=== PATIENT | female | born 1940 | race Caucasian/White ===

== ENCOUNTER 2018-10-09 16:49 | Inpatient (IN) | payer MEDICARE ==
[2018-10-09] MEDS ORDERED: LEVALBUTEROL 1.25 MG/3 ML NEB ONE (18:41)
[2018-10-09] MEDS ORDERED: IPRATROPIUM BROM 0.5MG/2.5ML ONE (18:41)
[2018-10-09 18:48] LABS: Potassium 3.9 mmol/L (3.5-5.1)
[2018-10-09 19:02] LABS: Absolute Lymphocytes (CBC) 0.7 K/uL (0.7-4.9); Absolute Monocytes 1.6 K/uL (0.1-1.3); Absolute Neutrophil 14.9 K/uL (1.8-8.0); Basophils % 0.1 % (0-1.3); Eosinophils % 0.1 % (0-4.4); Hematocrit 40.4 % (36.0-45.0); MPV 10.1 fL (7.6-11.3); Monocytes % 9.2 % (3.3-12.3); RBC Red Blood Cell Count 4.03 M/uL (3.86-4.86)
--- NOTE | 2018-10-09 19:14 | RAD REPORT ---
EXAM DESCRIPTION: Tirso Single View10/09/2018 5:56 pm CLINICAL HISTORY: Cough COMPARISON: none FINDINGS: Extensive bilateral reticulonodular opacities are present. Prominent right apical soft tissue is seen. Right lateral base is hazy. The heart is normal size IMPRESSION: Extensive bilateral reticulonodular opacities. This all may represent pulmonary fibrosis . However, an acute superimposed process such as infection can also have this appearance Prominent right apical soft tissue may represent pleural thickening. As a mass can also have this samantha earance it is recommended that the patient have a followup PA and lateral chest series in 1 month for re-evaluation Right lateral base is hazy which may indicate pneumonia or pleural thickening
[2018-10-09] MEDS ORDERED: CEFTRIAXONE/SWI 1gm 1 GM/10 ML SYR ONE (19:55)
[2018-10-09] MEDS ORDERED: AZITHROMYCIN 500 MG/250 ML BAG ONE (19:56)
--- NOTE | 2018-10-09 20:15 | EDPHYS ---
Physician Documentation [facility] Name: Selam Soto Age: 78 yrs Sex: Female : 1940 Arrival Date: 10/09/2018 Time: 16:56 Bed 23 Private MD: ED Physician Srikanth Bonds HPI: 10/09 21:54 This 78 yrs old Female presents to ER via Ambulatory with complaints of kb Breathing Difficulty, Congestion. 21:54 The patient has shortness of breath at rest, and the patient has a history of COPD. kb Onset: The symptoms/episode began/occurred 5 day(s) ago. Duration: The symptoms are continuous. The patient's shortness of breath is aggravated by exertion, is alleviated by nothing. Associated signs and symptoms: Pertinent positives: productive cough. Severity of symptoms: At their worst the symptoms were moderate in the emergency department the symptoms are unchanged. The patient has not experienced similar symptoms in the past. The patient has not recently seen a physician. Historical: - Allergies: 17:19 No Known Allergies; sg - Immunization history:: Adult Immunizations. - Social history:: Smoking status: Patient uses tobacco products, smokes one pack cigarettes per day. - Ebola Screening: : No symptoms or risks identified at this time. ROS: 21:30 Constitutional: Negative for fever, chills, and weight loss, ENT: Negative for injury, kb pain, and discharge, Neck: Negative for injury, pain, and swelling, Cardiovascular: Negative for chest pain, palpitations, and edema, Abdomen/GI: Negative for abdominal pain, nausea, vomiting, diarrhea, and constipation, Back: Negative for injury and pain, MS/Extremity: Negative for injury and deformity, Skin: Negative for injury, rash, and discoloration, Neuro: Negative for headache, weakness, numbness, tingling, and seizure. 21:30 Respiratory: Positive for cough, dyspnea on exertion, shortness of breath, wheezing, Negative for hemoptysis, orthopnea, pleurisy. Exam: 21:30 Constitutional: This is a well developed, well nourished patient who is awake, alert, kb and in no acute distress. Head/Face: Normocephalic, atraumatic. ENT: Nares patent. No nasal discharge, no septal abnormalities noted. Tympanic membranes are normal and external auditory canals are clear. Oropharynx with no redness, swelling, or masses, exudates, or evidence of obstruction, uvula midline. Mucous membranes moist. Neck: Trachea midline, no thyromegaly or masses palpated, and no cervical lymphadenopathy. Supple, full range of motion without nuchal rigidity, or vertebral point tenderness. No Meningismus. Chest/axilla: Normal chest wall appearance and motion. Nontender with no deformity. No lesions are appreciated. Cardiovascular: Regular rate and rhythm with a normal S1 and S2. No gallops, murmurs, or rubs. Normal PMI, no JVD. No pulse deficits. Abdomen/GI: Soft, non-tender, with normal bowel sounds. No distension or tympany. No guarding or rebound. No evidence of tenderness throughout. Back: No spinal tenderness. No costovertebral tenderness. Full range of motion. Skin: Warm, dry with normal turgor. Normal color with no rashes, no lesions, and no evidence of cellulitis. MS/ Extremity: Pulses equal, no cyanosis. Neurovascular intact. Full, normal range of motion. Neuro: Awake and alert, GCS 15, oriented to person, place, time, and situation. Cranial nerves II-XII grossly intact. Motor strength 5/5 in all extremities. Sensory grossly intact. Cerebellar exam normal. Normal gait. 21:30 Respiratory: moderate respiratory distress is noted, Respirations: labored breathing, that is moderate, Breath sounds: wheezing: that is moderate, is heard in the left lower lobe and left posterior lower lobe. Vital Signs: 17:18 BP 120 / 75; Pulse 108; Resp 32; Temp 98.2; Pulse Ox 92% on R/A; Weight 52.16 kg; sg 18:08 BP 130 / 72; Pulse 96; Resp 32; Pulse Ox 89% on R/A; tl3 18:09 BP 172 / 0; Pulse Ox 94% on 2 lpm NC; tl3 20:13 BP 132 / 77; Pulse 89; Resp 32; Pulse Ox 94% ; tl3 21:53 BP 111 / 67; Pulse 102; Resp 28; Pulse Ox 94% on R/A; tl3 MDM: 17:21 Patient medically screened. kb 20:15 Data reviewed: vital signs, nurses notes. Data interpreted: Pulse oximetry: on room air kb is 94 %. Interpretation: acceptable. Counseling: I had a detailed discussion with the patient and/or guardian regarding: the historical points, exam findings, and any diagnostic results supporting the discharge/admit diagnosis, lab results, radiology results, the need for further work-up and treatment in the hospital. Physician consultation: Jesus Manuel Cueto MD was contacted at 20:15, regarding admission, to the telemetry unit. patient's condition, and will see patient in ED, shortly. 10/09 17:37 Order name: CBC with Diff; Complete Time: 19:10 kb 10/09 17:37 Order name: Basic Metabolic Panel; Complete Time: 18:50 kb 10/09 17:37 Order name: Blood Culture Adult (2) kb 10/09 17:37 Order name: Lactate; Complete Time: 18:55 kb 10/09 17:37 Order name: Procalcitonin; Complete Time: 19:24 kb 10/09 17:37 Order name: Flu; Complete Time: 18:55 kb 10/09 17:37 Order name: Chest Single View XRAY; Complete Time: 19:19 kb 10/09 17:37 Order name: IV Start; Complete Time: 18:58 kb Administered Medications: 18:58 Drug: Xopenex (3) 1.25 mg Route: Inhalation; tl3 19:59 Follow up: Response: No adverse reaction tl3 18:58 Drug: AtroVENT Aerosol 0.5 mg Route: Inhalation; tl3 19:59 Follow up: Response: No adverse reaction tl3 19:58 Drug: Rocephin 1 grams Route: IV; Rate: calculated rate; Site: right forearm; Delivery: tl3 Primary tubing; 19:58 Follow up: IV Status: Completed infusion; IV Intake: 20ml tl3 19:58 Drug: Zithromax 500 mg Route: IVPB; Infused Over: 1 hrs; Site: right forearm; Delivery: tl3 Primary tubing; 21:58 Follow up: IV Status: Completed infusion; IV Intake: 250ml tl3 20:22 Drug: NS 0.9% 500 ml Route: IV; Rate: bolus; Site: right forearm; Delivery: Primary tl3 tubing; 22:07 Follow up: IV Status: Completed infusion; IV Intake: 500ml tl3 20:23 Drug: SOLU-Medrol 125 mg Route: IVP; Infused Over: 3 mins; Site: right forearm; tl3 22:00 Follow up: Response: No adverse reaction tl3 Disposition: 02/05 12:43 Co-signature as Attending Physician, Srikanth Bonds MD. rn Disposition: 10/09/18 20:15 Hospitalization ordered by Jesus Manuel Cueto for Observation. Preliminary diagnosis are Pneumonia, unspecified organism, Chronic obstructive pulmonary disease with (acute) exacerbation. - Bed requested for Telemetry/MedSurg (observation). - Status is Observation. tl3 - Condition is Stable. - Problem is new. - Symptoms are unchanged. UTI on Admission? No Signatures: Dispatcher [employer] EDMS Sara Salvador, VP PURCHASING-C VP PURCHASING-Ckb Marily Barrientos RN RN Arnol Sierra RN RN Srikanth Bonds MD MD rn Lowrey, Tammy, RN RN tl3 Corrections: (The following items were deleted from the chart) 10/09 21:14 20:15 Hospitalization Ordered by Jesus Manuel Cueto MD for Observation. Preliminary mw diagnosis is Pneumonia, unspecified organism; Chronic obstructive pulmonary disease with (acute) exacerbation. Bed requested for Telemetry/MedSurg (observation). Status is Observation. Condition is Stable. Problem is new. Symptoms are unchanged. UTI on Admission? No. kb 22:44 21:14 10/09/2018 20:15 Hospitalization Ordered by Jesus Manuel Cueto MD for Observation. tl3 Preliminary diagnosis is Pneumonia, unspecified organism; Chronic obstructive pulmonary disease with (acute) exacerbation. Bed requested for Telemetry/MedSurg (observation). Status is Observation. Condition is Stable. Problem is new. Symptoms are unchanged. UTI on Admission? No. mw
--- NOTE | 2018-10-09 20:15 | ER ---
Nurse's Notes [facility] Name: Selam Soto Age: 78 yrs Sex: Female : 1940 Arrival Date: 10/09/2018 Time: 16:56 Bed 23 Private MD: Diagnosis: Pneumonia, unspecified organism;Chronic obstructive pulmonary disease with (acute) exacerbation Presentation: 10/09 17:17 Presenting complaint: Patient states: pt reports cough and chest congestion, has sg productive cough that is yellow and green sputum. Transition of care: patient was not received from another setting of care. Onset of symptoms was October 09, 2018. Risk Assessment: Do you want to hurt yourself or someone else? Patient reports no desire to harm self or others. Initial Sepsis Screen: Does the patient meet any 2 criteria? No. Patient's initial sepsis screen is negative. Does the patient have a suspected source of infection? No. Patient's initial sepsis screen is negative. Care prior to arrival: None. 17:17 Method Of Arrival: Ambulatory sg 17:17 Acuity: ANAY 3 sg Triage Assessment: 21:52 General: Appears distressed, uncomfortable, slender, well developed, well nourished, tl3 Behavior is cooperative, appropriate for age. Respiratory: Reports shortness of breath at rest on exertion Onset: The symptoms/episode began/occurred 4 days, the patient has severe shortness of breath. Historical: - Allergies: 17:19 No Known Allergies; sg - Immunization history:: Adult Immunizations. - Social history:: Smoking status: Patient uses tobacco products, smokes one pack cigarettes per day. - Ebola Screening: : No symptoms or risks identified at this time. Screenin:10 Abuse screen: Denies threats or abuse. Nutritional screening: No deficits noted. tl3 Tuberculosis screening: No symptoms or risk factors identified. Fall Risk None identified. Assessment: 20:08 General: Appears distressed, uncomfortable, slender, well groomed, well developed, well tl3 nourished, Behavior is calm, cooperative, appropriate for age. Pain: Complains of pain in chest. Neuro: Level of Consciousness is awake, alert, Oriented to person, place, time, situation, Appropriate for age. Cardiovascular: Heart tones S1 S2 present Patient's skin is warm and dry. Rhythm is regular. Respiratory: Airway is patent Respiratory effort is even, labored, Respiratory pattern is symmetrical, tachypnea Sputum is thick, green Breath sounds with crackles in left lower lobe and left posterior lower lobe. GI: No signs and/or symptoms were reported involving the gastrointestinal system. : No signs and/or symptoms were reported regarding the genitourinary system. EENT: No signs and/or symptoms were reported regarding the EENT system. 20:12 Reassessment: No changes from previously documented assessment. Patient and/or family tl3 updated on plan of care and expected duration. Pain level reassessed. Patient is alert, oriented x 3, equal unlabored respirations, skin warm/dry/pink. pt trying to sleep, family left to go get some dinner. 21:53 Reassessment: No changes from previously documented assessment. Patient and/or family tl3 updated on plan of care and expected duration. Pain level reassessed. Patient is alert, oriented x 3, equal unlabored respirations, skin warm/dry/pink. pt being admitted to hospital family notified of room number. 22:26 Reassessment: No changes from previously documented assessment. Patient and/or family tl3 updated on plan of care and expected duration. Pain level reassessed. Patient is alert, oriented x 3, equal unlabored respirations, skin warm/dry/pink. Vital Signs: 17:18 BP 120 / 75; Pulse 108; Resp 32; Temp 98.2; Pulse Ox 92% on R/A; Weight 52.16 kg; sg 18:08 BP 130 / 72; Pulse 96; Resp 32; Pulse Ox 89% on R/A; tl3 18:09 BP 172 / 0; Pulse Ox 94% on 2 lpm NC; tl3 20:13 BP 132 / 77; Pulse 89; Resp 32; Pulse Ox 94% ; tl3 21:53 BP 111 / 67; Pulse 102; Resp 28; Pulse Ox 94% on R/A; tl3 ED Course: 16:56 Patient arrived in ED. tw3 17:17 Arm band placed on. EKG completed in triage. Results shown to MD. sg 17:18 Triage completed. sg 17:21 Sara Salvador FNP-C [facility]. kb 17:21 Srikanth Bonds MD is Attending Physician. kb 18:05 Chest Single View XRAY In Process Unspecified. EDMS 18:28 Lander, Nat, RN is Primary Nurse. tl3 18:58 Initial lab(s) drawn, by me, sent to lab. Flu and/or RSV swab sent to lab. Inserted tl3 saline lock: 22 gauge in right forearm, using aseptic technique. Blood collected. 20:10 Patient has correct armband on for positive identification. Placed in gown. Bed in low tl3 position. Call light in reach. Side rails up X2. Adult w/ patient. Pulse ox on. NIBP on. 20:10 No provider procedures requiring assistance completed. tl3 20:14 Jesus Manuel Cueto MD is Hospitalizing Provider. kb 22:26 Patient admitted, IV remains in place. tl3 Administered Medications: 18:58 Drug: Xopenex (3) 1.25 mg Route: Inhalation; tl3 19:59 Follow up: Response: No adverse reaction tl3 18:58 Drug: AtroVENT Aerosol 0.5 mg Route: Inhalation; tl3 19:59 Follow up: Response: No adverse reaction tl3 19:58 Drug: Rocephin 1 grams Route: IV; Rate: calculated rate; Site: right forearm; Delivery: tl3 Primary tubing; 19:58 Follow up: IV Status: Completed infusion; IV Intake: 20ml tl3 19:58 Drug: Zithromax 500 mg Route: IVPB; Infused Over: 1 hrs; Site: right forearm; Delivery: tl3 Primary tubing; 21:58 Follow up: IV Status: Completed infusion; IV Intake: 250ml tl3 20:22 Drug: NS 0.9% 500 ml Route: IV; Rate: bolus; Site: right forearm; Delivery: Primary tl3 tubing; 22:07 Follow up: IV Status: Completed infusion; IV Intake: 500ml tl3 20:23 Drug: SOLU-Medrol 125 mg Route: IVP; Infused Over: 3 mins; Site: right forearm; tl3 22:00 Follow up: Response: No adverse reaction tl3 Intake: 19:58 IV: 20ml; Total: 20ml. tl3 21:58 IV: 250ml; Total: 270ml. tl3 22:07 IV: 500ml; Total: 770ml. tl3 Outcome: 20:15 Decision to Hospitalize by Provider. kb 22:26 Admitted to Med/surg accompanied by tech, via stretcher, room 216, with chart, Report tl3 called to ASHLYN Rodriguez 22:26 Condition: stable 22:26 Instructed on the need for admit. 22:44 Patient left the ED. tl3 Signatures: Dispatcher [employer] Sara Wheeler, GLUE MAKER-C GLUE MAKER-Ckb Arnol Sierra, RN RN sg Benji, Shari tw3 Nat Krueger RN RN tl3 Corrections: (The following items were deleted from the chart) 20:15 20:08 BP 130 / 72; Pulse 96bpm; Resp 32bpm; Pulse Ox 89% RA; tl3 tl3 20:15 20:10 Pulse Ox 94% 2 lpm Nasal Cannula; tl3 tl3 20:15 20:10 BP 132 / 77; Pulse 89bpm; Resp 32bpm; Pulse Ox 94%; tl3 tl3
[2018-10-09] MEDS ORDERED: NA CHLORIDE 0.9% 1,000 ML ONE (20:28)
[2018-10-09] MEDS ORDERED: METHYLPREDNISOLONE 125 MG INJ ONE (20:28)
--- NOTE | 2018-10-09 21:29 | P.HP ---
Certification for Inpatient Patient admitted to: Inpatient With expected LOS: >2 Midnights Practitioner: I am a practitioner with admitting privileges, knowledge of patient current condition, hospital course, and medical plan of care. Services: Services provided to patient in accordance with Admission requirements found in Title 42 Section 412.3 of the Code of Federal Regulations Patient History Date of Service: 10/09/18 Reason for admission: COPD exacerbation History of Present Illness: Ms Soto is an 78 years old woman with history of COPD, tobacco abuse 1 ppd, Chronic A.Fib, CAD, who start about 4 days ago with progressive SOB, associated with productive cough. Since 2 days ago, she changed the color of her sputum to greenish/yellowish. She denied fever or chills. Today, her symptoms got worse and came to ED for evaluation. Lab work remarkable for leukocytosis, 17.3K, elevated procalcitonin with normal lactate. Sodium level decreased. CXR bilateral reticulonodular opacity with possible right superimpose infiltrate. At my encounter the patient was dyspneic. Home medications list reviewed: Yes - Past Medical/Surgical History -: COPD -: tobacco abuse -: Chronic A.Fib -: HTN -: CAD -: CVA Past Surgical History: Reviewed- Non-Contributory - Family History Family History: Reviewed- Non-Contributory - Social History Smoking Status: Current every day smoker Counseled patient to stop smoking for: less than 10 minutes Alcohol use: No CD- Drugs: No Place of Residence: Home Review of Systems 10-point ROS is otherwise unremarkable Physical Examination - Physical Exam General: Alert, In no apparent distress HEENT: Atraumatic, PERRLA, Mucous membr. moist/pink, EOMI, Sclerae nonicteric Neck: Supple, 2+ carotid pulse no bruit, No LAD, Without JVD or thyroid abnormality Respiratory: Diminished, Crackles/rales (bibasilar crackles), Expiratory wheezes (scattered bilateral.) Cardiovascular: Normal S1 S2, Irregular heart rate/rhythm Gastrointestinal: Normal bowel sounds, No tenderness Musculoskeletal: No tenderness Integumentary: No rashes Neurological: Normal gait, Normal speech, Normal strength at 5/5 x4 extr, Normal tone, Normal affect Lymphatics: No axilla or inguinal lymphadenopathy - Studies Laboratory Data (last 24 hrs) 10/09/18 18:20: Sodium 128 L, Potassium 3.9, BUN 18, Creatinine 0.74, Glucose 129 H 10/09/18 18:20: WBC 17.3 H, Hgb 13.7, Hct 40.4, Plt Count 234 Microbiology Data (last 24 hrs): 10/09/18 18:20 Nasopharnyx Influenza Type A Antigen Screen - Final 10/09/18 18:20 Nasopharnyx Influenza Type B Antigen Screen - Final Assessment and Plan - Problems (Diagnosis) (1) COPD exacerbation Current Visit: Yes Status: Acute (2) CAD (coronary artery disease) Current Visit: Yes Status: Acute Qualifiers: Coronary Disease-Associated Artery/Lesion type: [place] artery [place] vs. transplanted heart: [place] heart Associated angina: without angina Qualified Code(s): I25.10 - Atherosclerotic heart disease of [place] coronary artery without angina pectoris (3) A-fib Current Visit: Yes Status: Acute Qualifiers: Atrial fibrillation type: chronic Qualified Code(s): I48.2 - Chronic atrial fibrillation (4) HTN (hypertension) Current Visit: Yes Status: Acute Qualifiers: Hypertension type: essential hypertension Qualified Code(s): I10 - Essential (primary) hypertension (5) Tobacco abuse Current Visit: Yes Status: Acute (6) Hyponatremia Current Visit: Yes Status: Acute - Plan The patient will be admitted to the hospital due to COPD exacerbation. Will order empiric treatment with Rocephin and Azithromycin. Continue IV steroids and breathing treatments. IV normal saline for hyponatremia, likely due to volume depletion. - Advance Directives Does patient have a Living Will: No Does patient have a Durable POA for Healthcare: No - Code Status/Comfort Care Code Status Assessed: Yes Code Status: Do Not Resuscitate
[2018-10-09] MEDS ORDERED: ALBUTEROL 2.5 MG/3 ML NEB SOL NEB PRN (22:30)
[2018-10-09] MEDS ORDERED: ONDANSETRON 4 MG/2 ML VIAL IV PRN (22:30)
[2018-10-09] MEDS ORDERED: IPRATROPIUM BROM 0.5MG/2.5ML NEB PRN (22:30)
[2018-10-09] MEDS ORDERED: ACETAMINOPHEN 500 MG TAB PO PRN (22:30)
[2018-10-10] MEDS: NA CHLORIDE 0.9% 1,000 ML IV SCH ×2 (00:13→05:27)
[2018-10-10] MEDS: METHYLPREDNISOLONE 40 MG INJ IV SCH ×2 (00:14→05:27)
[2018-10-10 05:59] LABS: Absolute Lymphocytes (CBC) 0.4 K/uL (0.7-4.9); Absolute Monocytes 0.8 K/uL (0.1-1.3); Absolute Neutrophil 16.8 K/uL (1.8-8.0); Basophils % 0.1 % (0-1.3); Hematocrit 37.8 % (36.0-45.0); Lymphocytes % 2.1 % (15.3-44.8); MPV 9.7 fL (7.6-11.3); Monocytes % 4.2 % (3.3-12.3); RBC Red Blood Cell Count 3.77 M/uL (3.86-4.86)
[2018-10-10 06:22] LABS: BUN Blood Urea Nitrogen 13 mg/dL (7-18); Bicarbonate 29 mmol/L (21-32); Glucose Level 159 mg/dL (74-106); Magnesium 1.8 mg/dL (1.8-2.4); Potassium 4.2 mmol/L (3.5-5.1); Sodium Level 130 mmol/L (136-145)
[2018-10-10] MEDS ORDERED: MAGNESIUM SULFATE 1 gm IVPB 1 GM/100 ML BAG IV ONE (07:10)
[2018-10-10 07:41] LABS: Anisocytosis SLIGHT; Blood Morphology Comment NOTED (NOT SEEN); Macrocytosis SLIGHT; Platelet Estimate ADEQ; Urine White Blood Cell Casts OK
[2018-10-10] MEDS ORDERED: BENZONATATE 100 MG CAP PO PRN (07:52)
[2018-10-10] MEDS ORDERED: NA CHLORIDE 0.9% 1,000 ML IV SCH (08:00)
[2018-10-10] MEDS: predniSONE 20 MG TAB PO SCH ×2 (08:32→20:38)
[2018-10-10] MEDS: NICOTINE 21 MG/PAT TD SCH (08:32)
[2018-10-10] MEDS: GUAIFENESIN 600 MG SA TAB PO SCH ×2 (08:32→20:38)
[2018-10-10] MEDS: DILTIAZEM HCL 120 MG SR CAP PO SCH (08:32)
--- NOTE | 2018-10-10 08:48 | P.CNS ---
Date of Consult: 10/10/18 Chief Complaint: COPD exacerbation History of Present Illness: Patient is 78 years of age a very heavy smoker history of COPD was visiting here from [facility] as been here for about a week as been complaining of cough shortness of breath for the past 3 or 4 days she only uses pro air on a p.r.n. basis denies any significant dyspnea on exertion is not on any oxygen denies any fever or chills no swelling feeling better since admission Allergies No Known Allergies Allergy (Verified 10/09/18 23:14) - Past Medical/Surgical History Diabetic: No -: COPD -: tobacco abuse -: Chronic A.Fib -: HTN -: CAD -: CVA -: [place] transplant - Family History Father Notes: in accident at age 63 Mother Medical History: Liver disease Brother History Unknown: Yes Notes: doesnt think he has anything Sister Notes: dementia - Social History Smoking Status: Current every day smoker Alcohol use: Yes CD- Drugs: No Caffeine use: Yes Place of Residence: Home Review of Systems 10-point ROS is otherwise unremarkable General: Weakness Respiratory: Cough, Shortness of Breath Physical Examination Temp Pulse Resp BP Pulse Ox 97.1 F 98 H 24 H 117/63 91 10/10/18 04:00 10/10/18 04:00 10/10/18 04:00 10/10/18 04:00 10/10/18 04:00 General: Alert, In no apparent distress, Oriented x3 HEENT: Atraumatic Neck: Supple Respiratory: Clear to auscultation bilaterally, Diminished, Expiratory wheezes Cardiovascular: No edema, Regular rate/rhythm, Irregular heart rate/rhythm Gastrointestinal: Normal bowel sounds, Soft and benign Laboratory Data (last 24 hrs) 10/09/18 18:20: Sodium 128 L, Potassium 3.9, BUN 18, Creatinine 0.74, Glucose 129 H 10/09/18 18:20: WBC 17.3 H, Hgb 13.7, Hct 40.4, Plt Count 234 - Problems (1) COPD exacerbation Current Visit: Yes Status: Acute Plan: Patient is 78 years of age with a history of coronary artery disease atrial fibrillation very heavy smoker admitted with worsening dyspnea and cough I suspect that she has COPD exacerbation medication list not available is white count is elevated chemistries unremarkable chest x-ray shows extensive interstitial lung disease/I agree patient can be discharged home on Dulera low- dose prednisone p.o. antibiotic if he qualifies for home O2 if she has been console not to smoke patient will follow up with her doctors in [facility]
[2018-10-10] MEDS ORDERED: CEFTRIAXONE/SWI 1gm 1 GM/10 ML SYR IV SCH (09:00)
[2018-10-10] MEDS ORDERED: ENOXAPARIN 40 MG/0.4 ML SQ SCH (09:00)
[2018-10-10] MEDS ORDERED: CEFTRIAXONE 1 GM/NS 50 ML 1 GM/50 ML BAG IV SCH (09:00)
--- NOTE | 2018-10-10 09:50 | RAD REPORT ---
EXAM DESCRIPTION: Tirso Pa And Lat (2 Views)10/10/2018 9:38 am CLINICAL HISTORY: Shortness of breath COMPARISON: October 09 FINDINGS: No change has occurred in the extensive bilateral pulmonary opacities andsmall pleural eff usions Right basilar consolidation and right apical opacity are unchanged The heart remains enlarged
[2018-10-10] MEDS: BISOPROLOL 5 MG TABLET PO SCH (10:00)
[2018-10-10] MEDS: levoFLOXacin 500 MG TAB PO SCH (10:00)
[2018-10-10] MEDS: DULERA 200/5 (MOMETASONE/FORMOTEROL) INHALER IH SCH ×2 (10:00→20:38)
[2018-10-10] MEDS: IPRATROPIUM BROM 0.5MG/2.5ML NEB SCH ×2 (13:14→19:35)
[2018-10-10] MEDS ORDERED: LOPERAMIDE HCL 2 MG CAPSULE PO PRN ×2 (14:18→16:03)
--- NOTE | 2018-10-10 14:25 | P.PN ---
Subjective Date of Service: 10/10/18 Primary Care Provider: Dr. Willingham Chief Complaint: COPD exacerbation Subjective: Improving Physical Examination - Vital Signs Temperature: 98.3 F Blood Pressure: 130/75 Pulse: 109 Respirations: 18 Pulse Ox (%): 92 - Physical Exam General: Alert, In no apparent distress, Oriented x3, Cooperative HEENT: Atraumatic Neck: Supple Respiratory: Expiratory wheezes Cardiovascular: Abnormal pulses (Atrial fibrillation rate controlled) Gastrointestinal: Normal bowel sounds, Soft and benign, Non-distended, No tenderness, No masses, No rebound, No guarding Neurological: Normal speech, Normal strength at 5/5 x4 extr, Normal tone, Normal affect - Studies Laboratory Data (last 24 hrs) 10/09/18 18:20: Sodium 128 L, Potassium 3.9, BUN 18, Creatinine 0.74, Glucose 129 H 10/09/18 18:20: WBC 17.3 H, Hgb 13.7, Hct 40.4, Plt Count 234 Microbiology Data (last 24 hrs): 10/09/18 18:20 Nasopharnyx Influenza Type A Antigen Screen - Final 10/09/18 18:20 Nasopharnyx Influenza Type B Antigen Screen - Final Medications List Reviewed: Yes Assessment & Plan Discharge Plan: Home Plan to discharge in: 48 Hours Physician Review Additional Text: Impression: Shortness of breath secondary to COPD exacerbation complicated with right lower lobe pneumonia Chronic atrial fibrillation on chronic anti coagulation therapy Hypertension Tobacco abuse Hyponatremia Plan: Shortness of breath secondary to COPD exacerbation complicated with right lower lobe pneumonia: Will continue to wean off oxygen. Continue with COPD medication including oral steroid. Pulmonology consulted. Pulmonology has changed antibiotic therapy. Will recheck chest x-ray in the morning. Anticipate discharge in the next 24-48 hr. Chronic atrial fibrillation on chronic anti coagulation therapy: Restart home medication including anti coagulation therapy Hypertension: Continue the medication. Tobacco abuse: Tobacco cessation addressed in detail. May provide nicotine patch Hyponatremia: Encourage oral intake Time Spent Managing Pts Care (In Minutes): 55
[2018-10-10] MEDS: PANTOPRAZOLE 40MG TABLET PO SCH (16:56)
[2018-10-10] MEDS: RIVAROXABAN 20 MG TABLET PO SCH (16:56)
[2018-10-10] MEDS ORDERED: AZITHROMYCIN IV 500 MG in NA CHLORIDE 0.9% 250 ML IVPB SCH (21:00)
[2018-10-11] MEDS: IPRATROPIUM BROM 0.5MG/2.5ML NEB SCH ×3 (02:13→14:17)
[2018-10-11 06:11] LABS: Absolute Lymphocytes (CBC) 0.5 K/uL (0.7-4.9); Absolute Neutrophil 18.9 K/uL (1.8-8.0); Basophils % 0.1 % (0-1.3); Eosinophils % 0.1 % (0-4.4); Lymphocytes % 2.5 % (15.3-44.8); MPV 9.5 fL (7.6-11.3); Monocytes % 4.8 % (3.3-12.3); RBC Red Blood Cell Count 3.91 M/uL (3.86-4.86)
[2018-10-11 06:13] LABS: BUN Blood Urea Nitrogen 11 mg/dL (7-18); Bicarbonate 28 mmol/L (21-32); Glucose Level 151 mg/dL (74-106); Magnesium 1.9 mg/dL (1.8-2.4); Potassium 3.8 mmol/L (3.5-5.1); Sodium Level 133 mmol/L (136-145)
[2018-10-11] MEDS ORDERED: POTASSIUM 25 MEQ EFFERV TAB PO ONE (07:00)
[2018-10-11] MEDS: DULERA 200/5 (MOMETASONE/FORMOTEROL) INHALER IH SCH (09:00)
[2018-10-11] MEDS ORDERED: HOME MED 1 EA UNK (Omeprazole [Prilosec] 40 MG) PO SCH (09:00)
--- NOTE | 2018-10-11 09:16 | RAD REPORT ---
EXAM DESCRIPTION: RAD - Chest Pa And Lat (2 Views) - 10/11/2018 8:51 am CLINICAL HISTORY: Follow up pneumonia, COPD Chest pain. COMPARISON: Chest Pa And Lat (2 Views) dated 10/10/2018; Chest Single View dated 10/09/2018 FINDINGS: Diffuse COPD is present without significant change. Apical pleural thickening is stable. B ilateral pleural effusions, greater on the right, also stable. The heart is mildly enlarged in size. Aortic atherosclerosis. Diffuse osteopenia. IMPRESSION: Stable chest since 10/10/2018 study.
[2018-10-11] MEDS: GUAIFENESIN 600 MG SA TAB PO SCH (09:37)
[2018-10-11] MEDS: BISOPROLOL 5 MG TABLET PO SCH (09:37)
[2018-10-11] MEDS: levoFLOXacin 500 MG TAB PO SCH (09:37)
[2018-10-11] MEDS: DILTIAZEM HCL 120 MG SR CAP PO SCH (09:38)
[2018-10-11] MEDS: PANTOPRAZOLE 40MG TABLET PO SCH (09:38)
[2018-10-11] MEDS: NICOTINE 21 MG/PAT TD SCH (09:38)
[2018-10-11] MEDS: predniSONE 20 MG TAB PO SCH (09:38)
--- NOTE | 2018-10-11 11:23 | P.PN ---
Subjective Date of Service: 10/11/18 Primary Care Provider: Dr. Willingham Chief Complaint: COPD exacerbation Subjective: Improving Physical Examination - Vital Signs Temperature: 97 F Blood Pressure: 129/72 Pulse: 103 Respirations: 20 Pulse Ox (%): 93 - Physical Exam General: Alert, In no apparent distress, Oriented x3, Cooperative HEENT: Atraumatic Neck: Supple Respiratory: Expiratory wheezes, Inspiratory wheezes Cardiovascular: Normal pulses, Regular rate/rhythm Gastrointestinal: Normal bowel sounds, Soft and benign, Non-distended, No tenderness, No masses, No rebound, No guarding Musculoskeletal: No erythema, No tenderness, No warmth Integumentary: No tenderness/swelling, No erythema, No warmth, No cyanosis Neurological: Normal speech, Normal strength at 5/5 x4 extr, Normal tone - Studies Medications List Reviewed: Yes Assessment & Plan Discharge Plan: Home Plan to discharge in: 24 Hours Physician Review Additional Text: Impression: Shortness of breath secondary to COPD exacerbation complicated with right lower lobe pneumonia and bilateral pleural effusion Chronic atrial fibrillation on chronic anti coagulation therapy Hypertension Tobacco abuse Hyponatremia Plan: Shortness of breath secondary to COPD exacerbation complicated with right lower lobe pneumonia and bilateral pleural effusion: Patient continues to improve. Will wean off oxygen since the patient is from [place] and will require to be off oxygen prior to discharge. Pro calcitonin shows improvement. Chest x-ray stable. Continue with antibiotic therapy and COPD medication. Will reassess this afternoon. If off oxygen will consider discharge today. Patient plans return to [place] after discharge. Chronic atrial fibrillation on chronic anti coagulation therapy: Continue with medication Hypertension: Continue the medication. Overall stable. Tobacco abuse: Tobacco cessation addressed in detail. May provide nicotine patch Hyponatremia: Encourage oral intake Time Spent Managing Pts Care (In Minutes): 55
--- NOTE | 2018-10-11 18:06 | P.DS ---
Admission Date: 10/09/18 Discharge Date: 10/11/18 Primary Care Provider: Dr. Willingham([place]) Disposition: ROUTINE DISCHARGE Discharge Condition: GOOD Reason for Admission: COPD exacerbation Consultations: Pulmonary-Dr. Rhodes Procedures: CXR: COMPARISON: none FINDINGS: Extensive bilateral reticulonodular opacities are present. Prominent right apical soft tissue is seen. Right lateral base is hazy. The heart is normal size IMPRESSION: Extensive bilateral reticulonodular opacities. This all may represent pulmonary fibrosis. However, an acute superimposed process such as infection can also have this appearance Prominent right apical soft tissue may represent pleural thickening. As a mass can also have this appearance it is recommended that the patient have a followup PA and lateral chest series in 1 month for re-evaluation Right lateral base is hazy which may indicate pneumonia or pleural thickening Follow up CXR: COMPARISON: Chest Pa And Lat (2 Views) dated 10/10/2018; Chest Single View dated 10/09/2018 FINDINGS: Diffuse COPD is present without significant change. Apical pleural thickening is stable. Bilateral pleural effusions, greater on the right, also stable. The heart is mildly enlarged in size. Aortic atherosclerosis. Diffuse osteopenia. IMPRESSION: Stable chest since 10/10/2018 study. Medical Problem List: Shortness of breath secondary to COPD exacerbation complicated with right lower lobe pneumonia and bilateral pleural effusion Chronic atrial fibrillation on chronic anti coagulation therapy Hypertension Tobacco abuse Hyponatremia Brief History of Present Illness: 78-year-old female presented with shortness of breath, cough. Patient evaluated in the emergency room. Patient found to have pneumonia with COPD exacerbation. Patient was admitted for treatment. Patient originally from [place] and visiting in the area. Hospital Course: The patient presented with shortness of breath secondary to COPD exacerbation complicated with right lower lobe pneumonia and bilateral pleural effusion. Patient seen and evaluated by pulmonology. Patient improved. Patient did not require oxygen at discharge. Pro calcitonin showed improvement. Chest x-ray stable at discharge. At discharge she will continue with Levaquin 500 mg daily for 7 days. Patient will also continue with Advair 250 1 puff twice daily and Pro air 2 puffs 3 times a day as needed for shortness of breath. Mucinex 600 mg twice daily for congestion may be continued. Recommend for patient to follow up with pulmonology and her PCP once she gets back to [place]. Recommend to recheck chest x-ray in 2-4 weeks to monitor resolution. COPD education will be provided. Patient with tobacco abuse. Tobacco cessation addressed in detail. Patient will think about quitting. This can be further addressed by her PCP. Patient with chronic atrial fibrillation on chronic anti coagulation therapy. This remained stable during his stay. Patient will continue with Xarelto 20 mg daily and diltiazem 20 mg daily. Patient should follow up with cardiology in 2- 4 weeks to monitor her progress. Patient with hypertension. This remained stable. Patient will continue with bisoprolol 5 mg daily and diltiazem 120 mg daily. Recommend to maintain blood pressures less 150/80. Further adjustment can be done by her PCP. Patient with hyponatremia. This improved during her stay. Recommend to recheck lab-BMP in 1 week to monitor her progress. Vital Signs/Physical Exam: Temp Pulse Resp BP Pulse Ox 97 F 103 H 20 121/86 94 10/11/18 16:00 10/11/18 16:00 10/11/18 16:00 10/11/18 16:00 10/11/18 16:00 General: Alert, In no apparent distress, Oriented x3, Cooperative HEENT: Atraumatic Neck: Supple Respiratory: Clear to auscultation bilaterally, Normal air movement Cardiovascular: Abnormal pulses (atrial fibrillation, rate controlled. ) Gastrointestinal: Normal bowel sounds, Soft and benign, Non-distended, No tenderness, No masses, No rebound, No guarding Neurological: Normal speech, Normal strength at 5/5 x4 extr, Normal tone, Normal affect Laboratory Data at Discharge: WBC 20.4 K/uL (4.3-10.9) H* 10/11/18 05:29 Hgb 13.0 g/dL (12.0-15.0) 10/11/18 05:29 Hct 39.0 % (36.0-45.0) 10/11/18 05:29 Plt Count 229 K/uL (152-406) 10/11/18 05:29 Sodium 133 mmol/L (136-145) L 10/11/18 05:29 Potassium 3.8 mmol/L (3.5-5.1) 10/11/18 05:29 BUN 11 mg/dL (7-18) 10/11/18 05:29 Creatinine 0.58 mg/dL (0.55-1.3) 10/11/18 05:29 Glucose 151 mg/dL (74-106) H 10/11/18 05:29 Magnesium 1.9 mg/dL (1.8-2.4) 10/11/18 05:29 Home Medications: Aspirin Chewable [Aspirin Chewable*] 81 mg PO DAILY 10/10/18 Bisoprolol Fumarate [Zebeta*] 5 mg PO DAILY 10/10/18 Diltiazem HCl [Cardizem] 120 mg PO DAILY 10/10/18 Omeprazole [Prilosec] 40 mg PO DAILY 10/10/18 Rivaroxaban [Xarelto*] 20 mg PO DAILY 10/10/18 Albuterol Sulfate [Proair Hfa] 8.5 gm IH TID PRN #1 hfa.aer.ad 10/11/18 Fluticasone/Salmeterol [Advair 250-50 Diskus] 1 each IH BID #1 blst.w.dev Guaifenesin [Mucus ER] 600 mg PO BID #15 tab.er.12h 10/11/18 levoFLOXacin [Levaquin*] 500 mg PO DAILY #7 tab 10/11/18 predniSONE [Prednisone*] 20 mg PO SEECOM #15 tab 10/11/18 New Medications: Albuterol Sulfate [Proair Hfa] 8.5 gm IH TID PRN #1 hfa.aer.ad PRN Reason: Shortness Of Breath Fluticasone/Salmeterol [Advair 250-50 Diskus] 1 each IH BID #1 blst.w.dev Guaifenesin [Mucus ER] 600 mg PO BID #15 tab.er.12h levoFLOXacin [Levaquin*] 500 mg PO DAILY #7 tab predniSONE [Prednisone*] 20 mg PO SEECOM #15 tab Patient Discharge Instructions: 1. Patient will need to follow up with her PCP in [place] in 1 week to follow up this hospitalization. 2. The patient presented with shortness of breath secondary to COPD exacerbation complicated with right lower lobe pneumonia and bilateral pleural effusion. Patient seen and evaluated by pulmonology. Patient improved. Patient did not require oxygen at discharge. Pro calcitonin showed improvement. Chest x-ray stable at discharge. At discharge she will continue with Levaquin 500 mg daily for 7 days. Patient will also continue with Advair 250 1 puff twice daily and Pro air 2 puffs 3 times a day as needed for shortness of breath. Mucinex 600 mg twice daily for congestion may be continued. Recommend for patient to follow up with pulmonology and her PCP once she gets back to [place]. Recommend to recheck chest x-ray in 2-4 weeks to monitor resolution. COPD education will be provided. 3. Patient with tobacco abuse. Tobacco cessation addressed in detail. Patient will think about quitting. This can be further addressed by her PCP. 4. Patient with chronic atrial fibrillation on chronic anti coagulation therapy. This remained stable during his stay. Patient will continue with Xarelto 20 mg daily and diltiazem 20 mg daily. Patient should follow up with cardiology in 2-4 weeks to monitor her progress. 5. Patient with hypertension. This remained stable. Patient will continue with bisoprolol 5 mg daily and diltiazem 120 mg daily. Recommend to maintain blood pressures less 150/80. Further adjustment can be done by her PCP. 6. Patient with hyponatremia. This improved during her stay. Recommend to recheck lab- BMP in 1 week to monitor her progress. Diet: AHA Activity: Fall precautions Time spent managing pt's care (in minutes): 55
[2018-10-11] MEDS: RIVAROXABAN 20 MG TABLET PO SCH (18:52)
== END 2018-10-11 19:10 | disposition home or self-care (01) | DRG 190 ==
LOC: ER 16:49 → ERHOLD 21:10 → 2ND 22:27
PROVIDERS: ADMIT Internal Medicine; ATTEND Family Medicine
DX: J44.0 Chronic obstructive pulmonary disease with (acute) lower respiratory infection (principal); J18.9 Pneumonia, unspecified organism; J90 Pleural effusion, not elsewhere classified; E87.1 Hypo-osmolality and hyponatremia; J44.1 Chronic obstructive pulmonary disease with (acute) exacerbation; F17.210 Nicotine dependence, cigarettes, uncomplicated; I48.2 Chronic atrial fibrillation; Z79.01 Long term (current) use of anticoagulants; I10 Essential (primary) hypertension; Z86.73 Personal history of transient ischemic attack (TIA), and cerebral infarction without residual deficits; I25.10 Atherosclerotic heart disease of native coronary artery without angina pectoris
CPT/HCPCS: 36415; 71045; 71046; 80048; 83605; 83735; 84145; 85025; 87040; 87070; 87205; 87804; 94640; 94760; 96365; 96366; 96375; 99285; J0456; J0696; J2920; J2930; J3475; J7030; J7512; J7606